=== PATIENT | male | born 1945 | race African-American/Black ===

== ENCOUNTER 2017-04-05 14:58 | Emergency (ER) | payer MEDICARE, OTHER ==
[~2017-04-05] VITALS: Ht 175.3 cm; Wt 103.0 kg
[2017-04-05 16:25] VITALS: BP 110/74
== END 2017-04-05 16:40 | disposition home or self-care (01) ==
LOC: ER 15:11
DX: N45.1 Epididymitis (principal); N43.40 Spermatocele of epididymis, unspecified; N50.3 Cyst of epididymis; N43.3 Hydrocele, unspecified; E11.9 Type 2 diabetes mellitus without complications; I10 Essential (primary) hypertension
CPT/HCPCS: 76870